=== PATIENT | male | born 1980 | race Caucasian/White ===

== ENCOUNTER 2017-11-26 08:25 | Day surgery (SDC) | payer BC ==
[~2017-11-26 08:25] MED LIST: Lactated Ringers 1,000 ML IV SCH; cefOXitin 2 GM in Premix Bag 1 BAG IV ONE
--- NOTE | 2017-11-26 09:06 | PCM.PREANE ---
Preanesthetic Assessment - Procedure Proposed Procedure: laparoscopic cholecystectomy - Anesthesia/Transfusion/Family Hx Anesthesia History: No Prior Anesthesia Family History of Anesthesia Reaction: No Transfusion History: No Prior Transfusion(s) - Review of Systems General: No Symptoms Pulmonary: No Symptoms Cardiovascular: No Symptoms Gastrointestinal: Abdominal Pain (mild right upper quadrant sensations since Hida scan) Neurological: No Symptoms Other: Reports: None - Physical Assessment NPO Status Date: 11/25/17 NPO Status Time: 23:00 O2 Sat by Pulse Oximetry: 98 Respiratory Rate: 16 Vital Signs: Last Vital Signs Temp 97.9 F 11/26/17 08:49 Pulse 71 11/26/17 08:49 Resp 16 11/26/17 08:49 BP 124/89 11/26/17 08:49 Pulse Ox 98 11/26/17 08:49 Height: 5 ft 8 in Weight: 201 lb ASA Class: 2 Mental Status: Alert & Oriented x3 Airway Class: Mallampati = 1 Dentition: Reports: Normal Dentition Thyro-Mental Finger Breadths: 4 Mouth Opening Finger Breadths: 3 (bearded) ROM/Head Extension: Full Lungs: Clear to Auscultation, Normal Respiratory Effort Cardiovascular: Regular Rate, No Murmurs Other: redhead - Allergies Allergies/Adverse Reactions: Allergies Allergy/AdvReac Type Severity Reaction Status Date / Time No Known Allergies Allergy Verified 11/23/17 10:56 - Blood Blood Available: No Product(s) Available: None - Anesthesia Plan Pre-Op Medication Ordered: None - Acknowledgements Anesthesia Type Planned: General Anesthesia (OETT) Pt an Appropriate Candidate for the Planned Anesthesia: Yes Alternatives and Risks of Anesthesia Discussed w Pt/Guardian: Yes Pt/Guardian Understands and Agrees with Anesthesia Plan: Yes Additional Comments: present with interview and exam. Questions answered. Consent signed. PreAnesthesia Questionnaire - Past Health History Medical/Surgical History: Denies Medical/Surgical History Musculoskeletal History: Reports: Fracture Other Musculoskeletal History: hx fx clavicle as a child - Past Surgical History Head Surgeries/Procedures: Reports: None - SUBSTANCE USE Smoking Status *Q: Former Smoker Recreational Drug Use History: No - HOME MEDS Home Medications: Home Meds . [No Known Home Meds] 11/23/17 [History] - CURRENT (IN HOUSE) MEDS Current Meds: Current Medications Lactated Ringer's (Ringers, Lactated) 1,000 mls @ 125 mls/hr IV ASDIRECTED YAHIR Last Admin: 11/26/17 08:51 Dose: 125 mls/hr Discontinued Medications Cefoxitin Sodium 2 gm/ Premix 50 mls @ 100 mls/hr IV ONETIME ONE Stop: 11/26/17 07:29
[2017-11-26] MEDS ORDERED: Midazolam 1 MG/ML 2 ML SDV ONE (09:36)
[2017-11-26] MEDS ORDERED: Bupivacaine 0.5% 30 ML SDV ONE (09:36)
[2017-11-26] MEDS ORDERED: ceFAZolin 1 GM Vial ONE (09:36)
[2017-11-26] MEDS ORDERED: Lidocaine 2% 5 ML SDV ONE (09:36)
[2017-11-26] MEDS ORDERED: Propofol 200 MG/20 ML SDV ONE (09:36)
[2017-11-26] MEDS ORDERED: fentaNYL 100 MCG/2 ML SDV ONE ×2 (09:36→09:38)
[2017-11-26] MEDS ORDERED: Neostigmine Methylsulfate 1 MG/ML 5 ML Syringe ONE (09:37)
[2017-11-26] MEDS ORDERED: Ondansetron 4 MG/2 ML SDV ONE (09:37)
[2017-11-26] MEDS ORDERED: Bupivacaine 0.5% 10 ML SDV ONE (09:37)
[2017-11-26] MEDS ORDERED: Rocuronium 10 MG/ML 10 ML Syringe ONE (09:37)
[2017-11-26] MEDS ORDERED: Ketorolac 30 MG/ML SDV ONE (09:37)
[2017-11-26] MEDS ORDERED: Glycopyrrolate 0.2 MG/ML SDV ONE (09:37)
[2017-11-26] MEDS ORDERED: fentaNYL 100 MCG/2 ML SDV IVPUSH PRN (10:22)
[2017-11-26] MEDS ORDERED: Ondansetron 4 MG Tab.DIS PO PRN (11:11)
[2017-11-26] MEDS ORDERED: Acetaminophen/oxyCODONE 325-5 MG Tab PO PRN (11:11)
[2017-11-26] MEDS ORDERED: Acetaminophen/HYDROcodone 325-5 MG Tab PO PRN (11:11)
[2017-11-26] MEDS ORDERED: Morphine 10 MG/ML Syringe IVPUSH PRN (11:11)
--- NOTE | 2017-11-26 11:14 | PCM.OPNOTE ---
- General Post-Op/Procedure Note Date of Surgery/Procedure: 11/26/17 Operative Procedure(s): Laparoscopic cholecystectomy Pre Op Diagnosis: Reticulocyte right upper quadrant pain. Abnormal hepatobiliary scan. Post-Op Diagnosis: Chronic cholecystitis. Anesthesia Technique: General ET Tube (ASA II) Primary Surgeon: Moe Cordero Service Representative: Trevor Moody Fluid Replacement, Intraop: 1,000 EBL in mLs: 10 Condition: Good Free Text/Narrative:: Dictation [id number] CPT CODE [id number]
[2017-11-26] MEDS ORDERED: Lactated Ringers 1,000 ML IV SCH (11:15)
--- NOTE | 2017-11-26 11:37 | PCM.POSTAN ---
POST ANESTHESIA ASSESSMENT - MENTAL STATUS Mental Status: Alert, Oriented Free Text/Narrative:: Talking with RN, still a bit affected but maintaining cardiorespiratory in satisfactory effort and stability. To Phase II. - RESPIRATORY Respiratory Status: Respiratory Rate WNL, Airway Patent, O2 Saturation Stable - CARDIOVASCULAR CV Status: Pulse Rate WNL, Blood Pressure Stable - GASTROINTESTINAL GI Status: No Symptoms - POST OP HYDRATION Hydration Status: Adequate & Stable
--- NOTE | 2017-11-26 11:45 | OR ---
SURGEON: Moe Cordero M.D. DATE OF PROCEDURE: 11/26/2017 OPERATION PERFORMED: Laparoscopic cholecystectomy. [employer] DEVELOPER: Dr. Moody, PGY3 ANESTHESIA: General endotracheal. PREOPERATIVE DIAGNOSES: 1. Chronic right upper quadrant pain. 2. Abnormal HIDA scan. POSTOPERATIVE DIAGNOSIS: Mild chronic cholecystitis. ESTIMATED BLOOD LOSS: 5 mL. INTRAOPERATIVE FLUID REPLACEMENT: 1000 mL of crystalloid. [employer] CLASSIFICATION: II. DESCRIPTION OF PROCEDURE: The patient was taken to the operating room, placed on the operating table in the supine position. Time-out was called for appropriate identification of the patient and procedure. Thigh-high TEDs and sequential compression boots were placed. Following satisfactory attainment of general endotracheal anesthesia, a Riddle catheter was placed in the patient's urinary bladder. The abdomen was prepped with DuraPrep solution. Sterile drapes were applied. The skin below the umbilicus was infiltrated with 0.5% Marcaine solution. The skin incision was made and deepened through the subcutaneous tissue obtaining hemostasis with the use of electrocautery. The Veress needle was introduced into the peritoneal cavity. The saline drop test was positive. Carbon dioxide pneumoperitoneum was established with the relief set at 13 cm of water. Once we had a satisfactory pneumoperitoneum, the patient was positioned with his feet down and rolled to the left. Under camera vision, 12 mm subxiphoid, 5 mm midclavicular, and 5 mm anterior axillary ports were placed. Each incision had preemptively been infiltrated with 0.5% Marcaine solution. The gallbladder was grasped. The cholecystohepatic triangle was dissected obtaining good critical view of both the cystic duct and cystic artery. These structures were then hemoclipped and divided with the laparoscopic Metzenbaum scissor. Using electrocautery, the gallbladder was dissected away from its bed. No bile was spilled. Once gallbladder was amputated, this was placed in an Endopouch. The bed of the gallbladder was inspected for hemostasis. Minimal oozing was noted. The right upper quadrant was irrigated with sterile saline solution and all fluid was aspirated. Surgicel was placed into the bed of the gallbladder. The right hemidiaphragm was then irrigated with 250 mL of saline containing 20 mL of 0.5% Marcaine solution. That fluid was left in place. The Endopouch containing gallbladder and 12 mm port were removed under camera vision. The 5 mm midclavicular and anterior axillary ports were also removed under camera vision. Finally, the infraumbilical camera and port were removed under camera vision. The wounds were inspected for hemostasis. No significant bleeding was noted. The subxiphoid and infraumbilical incisions were closed in 2 layers approximating the subcutaneous tissue with 3-0 Polysorb and the skin with subcuticular 4-0 Monocryl. The anterior axillary and midclavicular incisions were closed with subcuticular 4-0 Monocryl. All incisions were Steri-Stripped and dressed with sterile Tegaderm pads. Sponge, needle, and instrument counts were all correct. The patient tolerated the procedure well. The Riddle catheter was removed prior to emergence from anesthesia. Following satisfactory emergence from anesthesia, the patient was taken to recovery room in stable condition. LEO WANG /[id number]
--- NOTE | 2017-11-26 12:19 | PCM48HPAN ---
Post Anesthesia Note - EVALUATION WITHIN 48HRS OF ANESTHETIC Vital Signs in Normal Range: Yes Patient Participated in Evaluation: Yes Respiratory Function Stable: Yes Airway Patent: Yes Cardiovascular Function Stable: Yes Hydration Status Stable: Yes Pain Control Satisfactory: Yes Nausea and Vomiting Control Satisfactory: Yes Mental Status Recovered: Yes Resp Rate: 12
== END 2017-11-26 13:05 | disposition home or self-care (01) ==
LOC: MW.SDS 08:25
PROVIDERS: ATTEND Surgery
DX: K81.1 Chronic cholecystitis (principal); Z72.0 Tobacco use
CPT/HCPCS: 47562; J1885; J2250; J2405; J3010; J7120; 00790; 88304; J0690; J2704